=== PATIENT | female | born 1995 | race Two or more races ===

== ENCOUNTER 2023-04-05 07:59 | Emergency (ER) | payer OTHER ==
[~2023-04-05] VITALS: Ht 167.6 cm; Wt 72.6 kg
--- NOTE | 2023-04-05 08:10 | NUR ---
URINE SPECIMEN COLLECTED, TO ER 1 FOR MD MONTERO
--- NOTE | 2023-04-05 08:15 | NUR ---
REeceived pt 27 yrs female [facility] by mother c/o abdominal pain on lt side pain for 3 days painfule to touch
--- NOTE | 2023-04-05 08:20 | NUR ---
Seen by DR. THORNE
[2023-04-05] MEDS ORDERED: IV NS 0.9% 1,000 ML BAG IV ONE (08:30)
[2023-04-05] MEDS ORDERED: KETOROLAC TROMETHAMINE INJ 30 MG/ML VIAL IV ONE ×2 (08:30→10:30)
[2023-04-05] MEDS ORDERED: ONDANSETRON HCL/PF 4 MG/2 ML VIAL IVP ONE (08:30)
--- NOTE | 2023-04-05 08:30 | NUR ---
INSERTED ANG CATHER G 19 BLOOD DROW AND SENT TO LAB
[2023-04-05 08:33] LABS: BILIRUBIN,URINE NEGATIVE (NEGATIVE); COLOR,URINE YELLOW (YELLOW); LEUKOCYTE ESTERASE ,URINE NEGATIVE (NEGATIVE); NITRITE, URINE NEGATIVE (NEGATIVE); PROTEIN,URINE NEGATIVE (NEGATIVE); UGLUCOSE NEGATIVE (NEGATIVE); UROBILINOGEN,URINE 0.2 EU/dL (0.2)
[2023-04-05] MEDS ORDERED: KETOROLAC TROMETHAMINE 15 MG/ML VIAL ONE (08:44)
[2023-04-05] MEDS ORDERED: ONDANSETRON HCL/PF 4 MG/2 ML VIAL ONE (08:44)
[2023-04-05 08:49] LABS: BASOPHILS # (AUTO) 0.2 K/uL (0.0-0.2); BASOPHILS % (AUTO) 3.4 % (0.0-2.0); HEMATOCRIT 34 % (33-45); LYMPHOCYTES # (AUTO) 1.5 K/uL (0.8-4.8); LYMPHOCYTES % (AUTO) 25.8 % (20.0-44.0); MEAN CORPUSCULAR HGB CONC 32 g/dl (31.0-36.0); MEAN CORPUSCULAR VOLUME 80 fL (82-100); MONOCYTES # (AUTO) 0.3 K/uL (0.1-1.30); MONOCYTES % (AUTO) 5.5 % (2.0-12.0); NEUTROPHILS # (AUTO) 3.6 K/uL (1.8-8.9); NEUTROPHILS % (AUTO) 62.3 % (43.0-81.0); PLATELET COUNT (AUTO) 287 K/uL (150-450); RED BLOOD CELL COUNT(AUTO) 4.25 MIL/uL (4.0-5.2); WHITE BLOOD COUNT (AUTO) 5.7 K/uL (4.3-11.0)
[2023-04-05 08:59] LABS: BACTERIA,URINE Rare /HPF (None Seen); SQUAMOUS EPITHELIAL CELL,UR Few /HPF (None Seen); WBC,URINE 0-2 /HPF (0-3)
--- NOTE | 2023-04-05 09:00 | NUR ---
MOTHER AT BED SIDE (MAYE CACERES
[2023-04-05 09:09] LABS: ALBUMIN 3.3 g/dL (3.4-5.0); BILIRUBIN,DIRECT 0.1 mg/dL (0.0-0.2); BILIRUBIN,TOTAL 0.2 mg/dL (0.2-1.0); CALCIUM, SERUM 9.1 mg/dL (8.5-10.1); CREATININE 0.7 mg/dL (0.6-1.3); POTASSIUM 4.3 mmol/L (3.5-5.1); TOTAL PROTEIN, SERUM 7.5 g/dL (6.4-8.2)
--- NOTE | 2023-04-05 09:12 | NUR ---
TO CT DOWNS OF ABDOMIN
--- NOTE | 2023-04-05 10:30 | NUR ---
[place] for abdominal US
[2023-04-05] MEDS ORDERED: KETOROLAC TROMETHAMINE INJ 30 MG/ML VIAL ONE (10:36)
--- NOTE | 2023-04-05 11:40 | NUR ---
US OB AT BED SIDE
--- NOTE | 2023-04-05 12:30 | NUR ---
AWAITING DIPOSITION OF PATIENT BY .
--- NOTE | 2023-04-05 13:02 | NUR ---
IV removed. Catheter intact and site benign. Pressure and 4x4 applied to site. No bleeding noted.
--- NOTE | 2023-04-05 13:03 | NUR ---
Patient discharged to home in stable condition. Written and verbal after care instructions given. Patient verbalizes understanding of instruction.
[2023-04-05 13:08] VITALS: BP 116/73
--- NOTE | 2023-04-05 13:09 | NUR ---
DR. THORNE AT BED SPOOKING WITH PT ABOUT PLAN OF CARE
== END 2023-04-05 13:16 | disposition home or self-care (01) ==
LOC: ER 08:19
DX: R10.32 Left lower quadrant pain (principal); R10.2 Pelvic and perineal pain
CPT/HCPCS: 99285; 74176; 96374; 76856; 96361; 96375; 96376; 85025; 80048; 87086; 83690; 80076; 84703; 81001; 36415; 84702; J1885 ×2; J2405; J7030